=== PATIENT | male | born 1955 | race Caucasian/White ===

== ENCOUNTER 2018-08-14 09:18 | Emergency (ER) | payer MEDICARE, MEDICAID ==
--- NOTE | 2018-08-14 10:09 | CT ---
HEAD CT NONCONTRAST: Date: 08/14/18 INDICATION: Seizure. FINDINGS: There is a large region of encephalomalacia throughout the majority of the right cerebral hemisphere with a prominent degree of ex vacuo dilatation of the right lateral ventricle. There is a smaller reg ion of encephalomalacia of the left frontal lobe. No intracranial hemorrhage or acute mass effect. Th ere are radiopaque densities of the extra-axial space and overlying the calvarium with evidence of pr ior surgical resection of portions of the right calvarium. There is a left frontal approach bur hole. IMPRESSION: Extensive encephalomalacia, notably on the right, with overlying calvarial defects and jocy hole form ation related to prior surgery. POS: TPC
[2018-08-14 10:28] LABS: #Eosinphils 0.1 thou/uL (0.0-0.7); #Lymphocytes 1.5 thou/uL (1.20-3.40); #Monocytes 0.6 thou/uL (0.11-0.59); #Neutrophils 9.4 thou/uL (1.40-6.50); %Basophils 0.2 % (0.0-1.0); %Eosinophils 0.7 % (0.0-10.0); %Monocytes 5.5 % (0.0-10.0); %Neutrophils 80.6 % (42.0-75.0); Hemoglobin 17.5 g/dL (14.0-18.0); Mean Corpuscular HGB CONC 31.9 g/dL (32.0-36.0); Mean Corpuscular Hemoglobin 29.8 pg (27.0-31.0); Mean Corpuscular Volume 93.4 fL (78.0-98.0); Mean Platelet Volume 6.9 fL (7.4-10.4); Platelet Count 219 thou/uL (130-400); RBC Distribution Width 13.2 % (11.5-14.5); Red Blood Cell (RBC) Count 5.87 mill/uL (4.70-6.10); White Blood Cell (WBC) Count 11.6 thou/uL (4.8-10.8)
[2018-08-14] MEDS ORDERED: Acetaminophen 500 MG TAB ONE (10:30)
[2018-08-14 10:48] LABS: Anion Gap 15 mmol/L (10-20); BUN (Urea Nitrogen) 18 mg/dL (8.4-25.7); Calc. Creatinine Clearance 0 mL/min (70-130); Calcium 9.7 mg/dL (7.8-10.44); Carbon Dioxide 25 mmol/L (23-31); Chloride 100 mmol/L (98-107); Dilantin 20.6 ug/mL (10.0-20.0); Estimated GFR-MDRD Greater than 90; Glucose 95 mg/dL (80-115); Potassium 4.8 mmol/L (3.5-5.1); Sodium 135 mmol/L (136-145)
== END 2018-08-14 12:05 | disposition home or self-care (01) ==
LOC: ERS 09:18
DX: R56.9 Unspecified convulsions (principal); J44.9 Chronic obstructive pulmonary disease, unspecified; E87.6 Hypokalemia; Z79.899 Other long term (current) drug therapy
CPT/HCPCS: 36415; 36416; 70450; 80048; 80185; 85025

== ENCOUNTER 2020-04-18 21:29 | Inpatient (IN) | payer MEDICARE, MEDICAID ==
[2020-04-18] MEDS ORDERED: Cefepime 2 GM VIAL ONE (21:44)
[2020-04-18] MEDS ORDERED: Magnesium 2 GM/50 ML BAG (IN WATER) ONE (21:44)
[2020-04-18] MEDS ORDERED: Dexamethasone 10 MG/ML VIAL ONE (21:44)
[2020-04-18] MEDS ORDERED: Vancomycin 1 GM/200 ML BAG ONE (21:44)
[2020-04-18] MEDS ORDERED: Albuterol 200 PUFF (6.7GM INHALER) ONE (21:46)
[2020-04-18 22:01] LABS: pH, Arterial 7.19 (7.35-7.45)
[2020-04-18 22:02] LABS: Actual Bicarbonate (HCO3a) 28.7 mEq/L (22-28); Analyzer IN Cardio ER; Base Excess (BEa) -1.9 mEq/L (-2.0 to +3.0); CO2 Tension 76.4 mmHg (35.0-45.0); Calcium, Ionized (arterial) 1.18 mmol/L (1.12-1.30); Carboxyhemoglobin (COHb) 1.3 gm% (0.0-3.0); Hemoglobin (Hb) 16.3 g/dL (14.0-18.0); O2 Tension (PaO2), arterial 60.1 mmHg (> 80.0); Potassium - ABG Lab 4.69 mmol/L (3.70-5.30); Puncture Site RBR
--- NOTE | 2020-04-18 22:19 | RAD ---
RADIOGRAPH CHEST 1 VIEW: DATE: 04/18/2020 TIME: 9:45 PM HISTORY: 64-year-old male with dyspnea and respiratory distress COMPARISON: 06/22/2019 FINDINGS: There is a new endotracheal tube with distal tip at mid thoracic trachea. No cardiomegaly. Apparently chronic interstitial densities in the bilateral lower lung zones appear similar to that of the prior study. Scarring at the right lateral midlung field. Supine positioning makes this relatively in sensitive for the detection of pneumothorax. No interval change in appearance of the lungs. IMPRESSION: 1) chronic pulmonary changes. 2) status post intubation.
[2020-04-18 22:41] LABS: #Eosinphils 0.1 thou/uL (0.0-0.7); #Monocytes 0.9 thou/uL (0.11-0.59); #Neutrophils 13.3 thou/uL (1.40-6.50); %Basophils 0.1 % (0.0-1.0); %Eosinophils 0.5 % (0.0-10.0); %Lymphocytes 6.5 % (21.0-51.0); %Monocytes 5.8 % (0.0-10.0); Hemoglobin 15.5 g/dL (14.0-18.0); Mean Corpuscular HGB CONC 31.4 g/dL (32.0-36.0); Mean Corpuscular Volume 92.4 fL (78.0-98.0); Mean Platelet Volume 7.6 fL (7.4-10.4); Platelet Count 199 thou/uL (130-400); RBC Distribution Width 13.9 % (11.5-14.5); Red Blood Cell (RBC) Count 5.36 mill/uL (4.70-6.10); White Blood Cell (WBC) Count 15.3 thou/uL (4.8-10.8)
[2020-04-18 23:00] LABS: ALT (SGPT) 32 U/L (8-55); AST (SGOT) 24 U/L (5-34); Albumin 3.7 g/dL (3.4-4.8); Alkaline Phosphatase 73 U/L (40-110); Anion Gap 12 mmol/L (10-20); BUN (Urea Nitrogen) 20 mg/dL (8.4-25.7); CK (CPK) 95 U/L (30-200); Calc. Creatinine Clearance 0 mL/min (70-130); Calcium 7.9 mg/dL (7.8-10.44); Carbon Dioxide 27 mmol/L (23-31); Chloride 105 mmol/L (98-107); Estimated GFR-MDRD Greater than 90; Globulin 2.7 g/dL (2.4-3.5); Glucose 163 mg/dL (80-115); Lipase 6 U/L (8-78); Protein, Total 6.4 g/dL (5.8-8.1); Sodium 139 mmol/L (136-145)
--- NOTE | 2020-04-18 23:14 | RAD ---
RADIOGRAPH CHEST 1 VIEW: DATE: 04/18/2020 TIME: 10:49 PM HISTORY: 64-year-old male status post central line placement COMPARISON: 04/18/2020 9:45 PM FINDINGS: This is an upright image. There is no pneumothorax. There is a new vertically descending catheter fro m the right neck, with distal tip overlying the right medial upper lung zone, apparently slightly lateral to the right mediastinal border. There has been no other interval change. Endotracheal tube r emains. IMPRESSION: Interval placement of a central vascular catheter descending from the right neck, as described above, without pneumothorax.
[2020-04-18 23:18] LABS: Bacteria/HPF None Seen HPF (None Seen); Bilirubin Negative (Negative); Blood, Urine Negative (Negative); Clarity Clear (Clear); Glucose, Urine (Dipstick) Normal (Negative); Ketone, Urine Negative (Negative); Leukocyte Negative Leu/uL (Negative); Nitrite Negative (Negative); Protein, Urine (Dipstick) 70 mg/dL (Neg-Trace); Squamous Epithelial None Seen HPF (0-3); Urobilinogen Normal mg/dL (Less than 2)
[2020-04-18 23:20] LABS: Specific Gravity, Urine 1.052 (1.002-1.036); Sperm/HPF 2+ HPF (None Seen)
[2020-04-18] MEDS ORDERED: Fentanyl 100 MCG/2 ML VIAL ONE (23:28)
[2020-04-18 23:50] LABS: SARS-CoV-2 NAA Rapid Test Not Detected (NotDetected)
[2020-04-19] MEDS ORDERED: Propofol 1,000 MG/100 ML VIAL IV ONE (01:16)
[2020-04-19] MEDS ORDERED: Ondansetron PF 4 MG/2 ML Vial IVP PRN (01:46)
[2020-04-19] MEDS ORDERED: Electrolyte Replacement Protoc 1 EACH EACH FS PRN (01:46)
[2020-04-19] MEDS ORDERED: Labetalol HCl 100 MG/20 ML VIAL SLOW IVP PRN (01:46)
[2020-04-19] MEDS ORDERED: Ondansetron ODT 4 MG TAB PO PRN (01:46)
[2020-04-19] MEDS ORDERED: Ventilator Sedation Protocol 1 EACH FS SCH (01:46)
[2020-04-19] MEDS ORDERED: Acetaminophen 650 MG Suppository PR PRN (01:46)
[2020-04-19 01:52] VITALS: BMI 28.8
[2020-04-19] MEDS ORDERED: Morphine 2 MG/ML VIAL SLOW IVP PRN (02:00)
[2020-04-19] MEDS ORDERED: Fentanyl BOLUS 250 ML IVPB PRN (02:00)
[2020-04-19] MEDS ORDERED: DISCONTINUE PREVIOUS NARCOTIC PAIN MEDICATIONS AND BENZODIAZEPINES FS SCH (02:00)
[2020-04-19] MEDS ORDERED: Propofol BOLUS 1,000 MG/100 ML VIAL IV PRN (02:00)
[2020-04-19] MEDS ORDERED: Lorazepam 2 MG/ML VIAL SLOW IVP PRN (02:00)
[2020-04-19] MEDS: Sodium Chloride 0.9% 1,000 ML IV SCH ×3 (02:05→20:04)
--- NOTE | 2020-04-19 02:20 | PDOC.EVN ---
Event Note - Event Note Event Note: Chest CT showing spiculated mass in L perihilar region with concern for malignancy. Consult Pulmonology for any further recommendations and follow up surveillance.
--- NOTE | 2020-04-19 03:00 | HP ---
PRIMARY CARE PROVIDER: Dr. Daugherty. CHIEF COMPLAINT: Found down. HISTORY OF PRESENT ILLNESS: This is a 64-year-old male, who presented to [facility] after being found by [facility] staff unresponsive, in respiratory failure. The patient is a resident in the independent living center of [facility] and apparently had been to [facility] earlier in the day on 04/18/2020 for respiratory distress. The patient apparently did not want any further workup and refused care during this evaluation earlier 04/18/2020. The patient was subsequently transported back to [facility] apparently under his own volition and oriented x3. The patient apparently was found unresponsive in respiratory failure, at which point, he was brought to the emergency room. The patient was minimally responsive with respiratory distress and multiple contusions of his left frontal and facial region. The patient was intubated in the emergency room for stabilization of the airway and oxygenation status. The patient underwent CT imaging of the brain showing chronic changes without acute process. The patient with a significant prior history of traumatic brain injury and subdural hematoma with previous craniotomies. The patient received intravenous normal saline, fentanyl, and midazolam to assist with securing the endotracheal tube. The patient was transported to [facility] for further evaluation. In the emergency department, the patient received IV Levaquin and Decadron with metabolic screening showing a Keppra level of 5.8. Troponin and BNP were negative. An ABG performed in the emergency room showed a pH of 7.19 with a pCO2 of 76. PAST MEDICAL HISTORY: 1. Traumatic brain injury with subdural hematoma. 2. Chronic obstructive pulmonary disease. 3. Polyneuropathy. 4. Seizure disorder. PAST SURGICAL HISTORY: 1. Status post tonsillectomy. 2. Status post craniotomy. CURRENT MEDICATIONS: Will need to be confirmed with [facility]. ALLERGIES: NO KNOWN DRUG ALLERGIES. FAMILY HISTORY: Unobtainable due to patient's respiratory failure, on mechanical ventilation. SOCIAL HISTORY: Resides at [facility]. No alcohol, tobacco, or illicit drug use. REVIEW OF SYSTEMS: Unobtainable due to patient's respiratory failure requiring mechanical ventilation. PHYSICAL EXAMINATION: VITAL SIGNS: On admission, blood pressure 96/65, pulse 73, respiratory rate 22, temperature 99.5 degrees Fahrenheit, O2 saturation 100% on 40% FiO2 by SIMV. HEENT: Pupils are minimally reactive to light and accommodation. Mild conjunctival injection. Multiple areas of contusion and ecchymosis on the forehead and lateral face. Nares patent. OP with endotracheal tube in place. NECK: Supple. No adenopathy appreciated. No palpable mass. No JVD noted. CHEST: Diminished breath sounds bilaterally with occasional expiratory rhonchi. CARDIOVASCULAR: S1, S2 without noted murmur, rub, or gallop. ABDOMEN: Obese, soft, nondistended. Bowel sounds are positive in all 4 quadrants. No palpable mass. No rebound or guarding noted. EXTREMITIES: Warm and dry with fair turgor. No clubbing, cyanosis, or asymmetric edema appreciated. Pulses are palpable distally at the dorsalis pedis, posterior tibial, and popliteal arteries bilaterally. Capillary refill less than 2 seconds. NEUROLOGIC: Unresponsive on current sedation due to mechanical ventilation. GENITOURINARY: A Kline catheter in place with dark vito urine. PERTINENT LABORATORY AND X-RAY FINDINGS: Complete metabolic profile within normal limits. BNP 13.9. Troponin I negative x1. Prolactin level 11.53. CBC showed a white blood cell count of 15.3, hemoglobin 15.5, hematocrit 49.5, platelet count 199 with 87% neutrophils. ABGs dated 04/18/2020 at 2155 showed a pH of 7.19, pCO2 of 76, PO2 of 60, bicarb 28.7, O2 saturation 89% on FiO2 of 40%. Urinalysis shows specific gravity 1.052, positive protein, 4 to 6 wbc's per high-powered field. Keppra level 5.8 on 04/18/2020. SARS-CoV-2 PCR not detected on 04/18/2020. CT of the brain without contrast dated 04/18/2020 showed no acute intracranial process. Stable chronic changes noted with encephalomalacia over the superior aspect of the left frontal lobe. CT of the cervical spine dated 04/18/2020 showed no acute fracture or dislocation. CT of the chest, abdomen, and pelvis dated 04/18/2020 showed no acute process. A spiculated mass in the left suprahilar region suspicious for malignancy. Scattered emphysematous changes. Left inguinal hernia containing nonobstructive loop of sigmoid colon. Portable chest x-ray dated 04/18/2020 showed right internal jugular central venous catheter placement. No pneumothorax noted. EKG dated 04/18/2020 by my interpretation shows sinus mechanism with heart rates in the 90s. Normal R-wave progression noted in the precordial leads. Normal axis. No acute ST-T wave changes appreciated. ASSESSMENT/PLAN: 1. Acute hypoxic hypercapnic respiratory failure. The patient will be admitted to the Critical Care Unit. Intubated in the emergency room. We will continue mechanical ventilation with SIMV, FiO2 of 40%. Consult Pulmonology Service in the a.m. for ongoing management. Repeat portable chest x-ray in the a.m. Continue DuoNeb q.4 hours. Solu-Medrol 40 mg IV q.6 hours. 2. Metabolic encephalopathy. Suspect secondary to the hypercapnia and hypoxia. Continue supportive management as outlined in #1. 3. Closed head injury. Questionable etiology and may be related to seizure disorder. Continue supportive management. Repeat CT of the brain in the a.m. 4. Seizure disorder. Continue deep sedation with propofol. Ativan 2 mg IV push q.15 minutes p.r.n. seizure activity. Resume Keppra once home regimen and dose confirmed. Consult Neurology Service in the a.m. 5. Dehydration. Continue intravenous normal saline at 100 mL/h. Monitor urine output. 6. Prophylaxis. SCDs while in bed. Pepcid 20 mg IV b.i.d. PT evaluation after extubation. CODE STATUS: Full. Surrogate medical decision maker is Carlos Alberto Miramontes. Job ID: [id number]
[2020-04-19 04:46] LABS: #Lymphocytes 0.6 thou/uL (1.20-3.40); #Monocytes 0.3 thou/uL (0.11-0.59); #Neutrophils 12.6 thou/uL (1.40-6.50); %Eosinophils 0.2 % (0.0-10.0); %Lymphocytes 4.2 % (21.0-51.0); %Monocytes 2.3 % (0.0-10.0); %Neutrophils 93.3 % (42.0-75.0); Hemoglobin 15.4 g/dL (14.0-18.0); Mean Corpuscular HGB CONC 31.8 g/dL (32.0-36.0); Mean Corpuscular Hemoglobin 28.9 pg (27.0-31.0); Mean Corpuscular Volume 90.8 fL (78.0-98.0); Platelet Count 212 thou/uL (130-400); Red Blood Cell (RBC) Count 5.33 mill/uL (4.70-6.10); White Blood Cell (WBC) Count 13.5 thou/uL (4.8-10.8)
[2020-04-19 05:13] LABS: ALT (SGPT) 31 U/L (8-55); AST (SGOT) 17 U/L (5-34); Albumin 3.8 g/dL (3.4-4.8); Alkaline Phosphatase 70 U/L (40-110); Anion Gap 13 mmol/L (10-20); BUN (Urea Nitrogen) 22 mg/dL (8.4-25.7); Bilirubin, Total 0.9 mg/dL (0.2-1.2); Calc. Creatinine Clearance 121 mL/min (70-130); Calcium 8.2 mg/dL (7.8-10.44); Carbon Dioxide 27 mmol/L (23-31); Chloride 106 mmol/L (98-107); Estimated GFR-MDRD Greater than 90; Globulin 2.7 g/dL (2.4-3.5); Glucose 157 mg/dL (80-115); Magnesium 2.4 mg/dL (1.6-2.6); Potassium 4.6 mmol/L (3.5-5.1); Protein, Total 6.5 g/dL (5.8-8.1); Sodium 141 mmol/L (136-145)
[2020-04-19] MEDS: methylPREDNISolone Sod Succ 40 MG VIAL IVP SCH ×4 (05:24→23:47)
[2020-04-19 07:09] LABS: Actual Bicarbonate (HCO3a) 23.6 mEq/L (22-28); Base Excess (BEa) -2.2 mEq/L (-2.0 to +3.0); CO2 Tension 44.2 mmHg (35.0-45.0); Calcium, Ionized (arterial) 1.13 mmol/L (1.12-1.30); Hemoglobin (Hb) 15.4 g/dL (14.0-18.0); O2 Tension (PaO2), arterial 69.1 mmHg (> 80.0); Potassium - ABG Lab 4.62 mmol/L (3.70-5.30); Puncture Site LRA; pH, Arterial 7.35 (7.35-7.45)
--- NOTE | 2020-04-19 08:27 | CT ---
PRELIMINARY REPORT/[facility]/EMERGENCY AFTER HOURS PROCEDURE: Exam: Unenhanced CT brain. History: Seizure. Comparison: August 14, 2018. Findings: Patient is intubated. There is chronic opacification right mastoid air cells. Mucosal thi ckening paranasal sinuses is present. Small amount of fluid is present right frontal sinus. Right f rontal parietal craniotomy is present. Marked encephalomalacia right cerebral hemisphere is present with compensatory dilatation. Right lateral ventricle. Appearance is unchanged. Patient demonstrat es. Baseline of cerebral atrophy. Impression: No acute intracranial abnormality. Postsurgical changes right cerebral hemisphere and ex tensive volume loss. ELECTRONICALLY SIGNED BY: Sera Belle MD Apr 19, 2020 4:36:48 AM CDT FINAL REPORT EMERGENT AFTER HOURS CT OF THE BRAIN WITHOUT CONTRAST: FINDINGS/IMPRESSION: I agree with the findings and impression given in the preliminary report per [facility] physici an. There is extensive encephalomalacia in the right cerebral hemisphere without acute intracranial abnormality. POS: EAA
[2020-04-19] MEDS ORDERED: Morphine 4 MG/ML VIAL SLOW IVP PRN (08:45)
[2020-04-19] MEDS: Famotidine/PF 20 mg/2ml Vial SLOW IVP SCH ×2 (08:49→20:04)
--- NOTE | 2020-04-19 08:53 | PDOC.HOSPP ---
- Subjective Encounter Date: 04/19/20 Encounter Time: 08:50 Subjective: Mr. Santiago was seen today in follow-up of respiratory failure. He is currently on the vent. He is awake and alert. - Objective Vital Signs & Weight: Vital Signs (12 hours) Temp Pulse Resp BP Pulse Ox 04/19/20 08:00 99 F 22 H 100 04/19/20 06:23 75 106/69 04/19/20 06:00 22 H 04/19/20 04:00 99.6 F 22 H 04/19/20 03:05 73 04/19/20 02:14 100 04/19/20 01:58 22 H 04/19/20 01:00 99.5 F 04/19/20 00:57 79 Weight Weight 212 lb 1.355 oz Most Recent Monitor Data Heart Rate from ECG 86 NIBP 110/75 NIBP BP-Mean 86 Respiration from ECG 26 SpO2 99 I&O: 04/18/20 04/19/20 04/20/20 06:59 06:59 06:59 Intake Total 360 Output Total 255 15 Balance 105 -15 Result Diagrams: 04/19/20 04:30 04/19/20 04:30 Hospitalist ROS - Medication Medications: Active Medications Generic Name Dose Route Start Last Admin Trade Name Freq PRN Reason Stop Dose Admin Sodium Chloride 1,000 mls @ 100 mls/hr 04/19/20 02:00 04/19/20 02:05 Normal Saline 0.9% IV 1,000 mls .Q10H COLLEEN Administration Levofloxacin 500 mg/ Device 100 mls @ 100 mls/hr 04/19/20 04:00 04/19/20 04:40 IVPB 100 mls 0400 COLLEEN Administration Methylprednisolone Sodium Succinate 40 mg 04/19/20 06:00 04/19/20 05:24 Methylprednisolone Sod Succ 40 Mg Vial IVP 40 mg Q6HR COLLEEN Administration - Exam General Appearance: awake alert Eye: PERRL, anicteric sclera Heart: RRR, no murmur, no gallops, no rubs Respiratory: CTAB, no wheezes, no rales, no ronchi, normal chest expansion Gastrointestinal: soft, non-tender, non-distended, normal bowel sounds, no palpable masses Extremities: no cyanosis, no edema Hosp A/P (1) Acute respiratory failure with hypoxia and hypercapnia Code(s): J96.01 - ACUTE RESPIRATORY FAILURE WITH HYPOXIA; J96.02 - ACUTE RESPIRATORY FAILURE WITH HYPERCAPNIA Status: Acute (2) Altered mental status Code(s): R41.82 - ALTERED MENTAL STATUS, UNSPECIFIED Status: Acute (3) Seizure disorder Code(s): G40.909 - EPILEPSY, UNSP, NOT INTRACTABLE, WITHOUT STATUS EPILEPTICUS Status: Acute (4) COPD (chronic obstructive pulmonary disease) Status: Chronic (5) Traumatic brain injury Code(s): S06.9X9A - UNSP INTRACRANIAL INJURY W LOC OF UNSP DURATION, INIT Status: Chronic - Plan * Acute respiratory failure- it is possible he had a seizure which precipitated this event- continue vent support * Seizure disorder- will transition to Keppra IV while intubated * COPD- continue IV steroids and Duonebs * DVT and GI prophylaxis * Await further recommendations from [facility]
--- NOTE | 2020-04-19 09:13 | RAD ---
PORTABLE CHEST: HISTORY: Respiratory failure. Ventilator followup with CCU followup. COMPARISON: 04/18/2020. FINDINGS: ET tube and NG tube are in place. A central line via the right jugular is unchanged. Hazy infiltrates in both mid and lower lungs appear unchanged from yesterday. IMPRESSION: No acute interval change. POS: OFF
[2020-04-19] MEDS: Enoxaparin Sodium 40 MG/0.4 ML SYRINGE SC SCH (11:03)
--- NOTE | 2020-04-19 12:20 | CON ---
NEUROLOGY CONSULTATION DATE OF CONSULTATION: 04/19/2020 REASON FOR CONSULTATION: Altered mental status. HISTORY OF PRESENT ILLNESS: Mr. Narcisa Santiago is a 64-year-old male with history significant for seizure disorder, presented to the emergency room at [facility] after being found down by [facility] nursing care staff. He was found unresponsive with respiratory distress on 04/18/2020. The patient was seen in the emergency room at [facility] earlier on 04/18/2020 with respiratory distress, but he refused further workup and was transported back to the [facility]. At that time, the patient was alert and oriented x3. However, this time he was minimally responsive and has multiple contusions in his left frontal and facial region. There was a concern about seizure, and since he was in respiratory distress, he was intubated and sedated. The patient had CT of the brain, which did not reveal any acute intracranial pathology or bleed. However, the CT did show prior encephalomalacia related to traumatic brain injury with previous history of craniotomy due to subdural hematoma. He was given fentanyl, normal saline and midazolam, intubated and transported to [facility] for further evaluation. Neurology was consulted for further management. REVIEW OF SYSTEMS: Unobtainable due to patient mental status. 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 PAST SURGICAL HISTORY: Status post craniotomy, status post tonsillectomy. MEDICATION: 1. Keppra 750 mg p.o. daily. 2. Gabapentin. ALLERGIES: NO KNOWN DRUG ALLERGIES. FAMILY HISTORY: Unobtainable due to the patient being intubated. SOCIAL HISTORY: The patient resides in [facility] independent living. He denies tobacco, alcohol or illegal drug. REVIEW OF SYSTEMS: Unobtainable, due to intubation. - Objective Vital Signs & Weight: Vital Signs (12 hours) Temp Pulse Resp BP Pulse Ox 04/19/20 08:00 99 F 22 H 100 04/19/20 06:23 75 106/69 04/19/20 06:00 22 H 04/19/20 04:00 99.6 F 22 H 04/19/20 03:05 73 04/19/20 02:14 100 04/19/20 01:58 22 H 04/19/20 01:00 99.5 F 09/28/20 00:57 79 Weight Weight 212 lb 1.355 oz Most Recent Monitor Data Heart Rate from ECG 86 NIBP 110/75 NIBP BP-Mean 86 Respiration from ECG 26 SpO2 99 I&O: 04/18/20 04/19/20 04/20/20 06:59 06:59 06:59 Intake Total 360 Output Total 255 15 Balance 105 -15 PHYSICAL EXAMINATION: General Appearance: awake alert Eye: PERRL, anicteric sclera Heart: RRR, no murmur, no gallops, no rubs Respiratory: CTAB, no wheezes, no rales, no ronchi, normal chest expansion Gastrointestinal: soft, non-tender, non-distended, normal bowel sounds, no palpable masses Extremities: no cyanosis, no edema EXTREMITIES: No clubbing, cyanosis, or edema. NEUROLOGIC: The patient is intubated and mildly sedated. He opens eyes to verbal stimuli. Follows one-step commands. Cranial nerves: Pupils 4 mm, round and reactive to light. Face symmetric. Tongue midline. Moves neck in both direction. Hearing seems to be intact. Motor: Muscle tone and bulk are normal. Minimal movement of all 4 extremities spontaneously. Sensory, withdraws all 4 extremities to nailbed pressure. Cerebellar, unable to perform secondary to restraints. Gait, deferred due to patient's safety reason. DATA REVIEWED: CT of the brain did not reveal any acute intracranial pathology, but stable changes noted with encephalomalacia in the superior aspect of the left frontal lobe. CT of the cervical spine on 04/18/2020 did not show any fracture or dislocation. The EKG showed normal sinus rhythm. Active Medications Generic Name Dose Route Start Last Admin Trade Name Freq PRN Reason Stop Dose Admin Sodium Chloride 1,000 mls @ 100 mls/hr 04/19/20 02:00 04/19/20 02:05 Normal Saline 0.9% IV 1,000 mls .Q10H COLLEEN Administration Levofloxacin 500 mg/ Device 100 mls @ 100 mls/hr 04/19/20 04:00 04/19/20 04:40 IVPB 100 mls 0400 COLLEEN Administration Methylprednisolone Sodium Succinate 40 mg 04/19/20 06:00 04/19/20 05:24 Methylprednisolone Sod Succ 40 Mg Vial IVP 40 mg Q6HR COLLEEN Administration ASSESSMENT AND PLAN: (1) Acute respiratory failure with hypoxia and hypercapnia Code(s): J96.01 - ACUTE RESPIRATORY FAILURE WITH HYPOXIA; J96.02 - ACUTE RESPIRATORY FAILURE WITH HYPERCAPNIA Status: Acute (2) Altered mental status Code(s): R41.82 - ALTERED MENTAL STATUS, UNSPECIFIED Status: Acute (3) Seizure disorder Code(s): G40.909 - EPILEPSY, UNSP, NOT INTRACTABLE, WITHOUT STATUS EPILEPTICUS Status: Acute (4) COPD (chronic obstructive pulmonary disease) Status: Chronic (5) Traumatic brain injury Code(s): S06.9X9A - UNSP INTRACRANIAL INJURY W LOC OF UNSP DURATION, INIT Status: Chronic Mr. Narcisa Santiago is a 64-year-old [facility] resident, who came with altered mental status. There is a concern about seizure but no seizure activity was noted. He was found to be in respiratory distress, so he is currently intubated, and on fentanyl. 1. EEG reviewed and did not reveal seizure activity. 2. Observe seizure precautions. 3. Increase home dose of Keppra to 1000 mg twice daily. The patient is unable to take p.o. at this time due to intubations. So switch Keppra to 1000 mg IV q.12. 4. Ativan 2 mg IV for seizure greater than greater than 2 minutes. 5. Continue home medications. Continue medical management per primary team and Pulmonology. We will continue to follow. Plan discussed with the patient and the nursing staff. Thank you for the consult. Job ID: [id number] [facility] HOSPITALDenia
[2020-04-19] MEDS: fentaNYL Citrate/PF 2,000 MCG in Sodium Chloride 0.9% 60 ML IV SCH (15:06)
--- NOTE | 2020-04-19 15:19 | CON ---
DATE OF CONSULTATION: 04/19/2020 Thirty five minutes critical care time. REASON FOR CONSULTATION: Acute respiratory failure requiring mechanical ventilation. HISTORY OF PRESENT ILLNESS: This is a 64-year-old male, who presented to the [place] [facility] yesterday with respiratory distress. He initially refused any further workup and was sent back to the [facility] center, where he was found down and brought back to the emergency room and intubated and placed on mechanical ventilation. There was some question whether or not he had fallen on his head. PAST MEDICAL HISTORY: 1. He has had a previous stroke. 2. Traumatic brain injury with subdural hematoma. 3. Left-sided hemiparesis. 4. COPD. 5. Polyneuropathy. 6. Seizure disorder. PAST SURGICAL HISTORY: 1. Tonsillectomy. 2. Craniotomy. MEDICATIONS: Prior to admission; 1. Levetiracetam 750 mg b.i.d. 2. Potassium chloride 10 mEq daily. 3. Gabapentin 300 mg b.i.d. 4. Furosemide 20 mg daily. SOCIAL HISTORY: Not sure about alcohol, tobacco, or drug use in the past. ALLERGIES: NONE. FAMILY MEDICAL HISTORY: Unremarkable. REVIEW OF SYSTEMS: Cannot be obtained at this time. PHYSICAL EXAMINATION: VITAL SIGNS: Temperature 99, pulse 78, blood pressure 101/67, O2 saturation 100%. GENERAL: The patient is wide awake, follows commands. HEENT: Has left eye conjunctival hemorrhage. Oropharynx, intubated. NECK: No adenopathy or JVD. LUNGS: Coarse rhonchi with expiratory wheezing bilaterally. CARDIAC: S1 and S2, regular. ABDOMEN: Soft and nontender. EXTREMITIES: No clubbing, cyanosis, or edema. NEUROLOGIC: He could move his right side without any problems. He has paralysis on his left side. LABORATORY DATA: White blood cell count 13.5, hematocrit 48.4, and platelet count 212. PH 7.35, pCO2 of 44, PO2 of 69. Sodium 141, potassium 4.6, chloride 106, CO2 of 27, BUN 22, creatinine 0.8, glucose 157. COVID rapid test was negative. Chest x-ray shows bilateral infiltrative changes. ASSESSMENT: 1. Chronic obstructive pulmonary disease with exacerbation. 2. Acute respiratory failure requiring mechanical ventilation. 3. Pneumonia. 4. Seizure disorder. PLAN: 1. Schedule his breathing treatments every 4 hours. 2. Continue antibiotics. 3. Continue steroids. 4. Hopefully, wean him to extubate soon. 5. Pepcid for GI prophylaxis. 6. Enoxaparin for DVT prophylaxis. Job ID: [id number]
[2020-04-19] MEDS: Propofol 1,000 MG/100 ML VIAL IV PRN (18:46)
[2020-04-19] MEDS: levETIRAcetam In NaCl (Iso-Os) 1,000 MG in Premix Bag 1 BAG IVPB SCH (20:04)
[2020-04-19] MEDS ORDERED: LEVETIRACETAM IVPB SCH (21:00)
[2020-04-19] MEDS ORDERED: NACL IVPB SCH (21:00)
[2020-04-19] MEDS ORDERED: SODIUM CHLORIDE 0.9% IVPB SCH (21:00)
[2020-04-20] MEDS: Propofol 1,000 MG/100 ML VIAL IV PRN ×3 (02:13→22:04)
[2020-04-20 05:11] LABS: #Lymphocytes 0.8 thou/uL (1.20-3.40); #Monocytes 0.8 thou/uL (0.11-0.59); #Neutrophils 16.2 thou/uL (1.40-6.50); %Basophils 0.1 % (0.0-1.0); %Eosinophils 0.1 % (0.0-10.0); %Lymphocytes 4.4 % (21.0-51.0); %Monocytes 4.2 % (0.0-10.0); %Neutrophils 91.1 % (42.0-75.0); Hemoglobin 13.9 g/dL (14.0-18.0); Mean Corpuscular HGB CONC 30.5 g/dL (32.0-36.0); Mean Corpuscular Hemoglobin 28.4 pg (27.0-31.0); Mean Corpuscular Volume 93.2 fL (78.0-98.0); Mean Platelet Volume 8.4 fL (7.4-10.4); Platelet Count 193 thou/uL (130-400); RBC Distribution Width 14.1 % (11.5-14.5); Red Blood Cell (RBC) Count 4.88 mill/uL (4.70-6.10); White Blood Cell (WBC) Count 17.8 thou/uL (4.8-10.8)
[2020-04-20] MEDS: methylPREDNISolone Sod Succ 40 MG VIAL IVP SCH ×3 (05:13→17:04)
[2020-04-20 05:33] LABS: ALT (SGPT) 25 U/L (8-55); AST (SGOT) 15 U/L (5-34); Albumin 3.8 g/dL (3.4-4.8); Alkaline Phosphatase 57 U/L (40-110); Anion Gap 12 mmol/L (10-20); BUN (Urea Nitrogen) 27 mg/dL (8.4-25.7); Bilirubin, Total 0.6 mg/dL (0.2-1.2); Calc. Creatinine Clearance 119 mL/min (70-130); Calcium 8.1 mg/dL (7.8-10.44); Carbon Dioxide 26 mmol/L (23-31); Chloride 107 mmol/L (98-107); Estimated GFR-MDRD Greater than 90; Globulin 2.7 g/dL (2.4-3.5); Glucose 135 mg/dL (80-115); Potassium 4.9 mmol/L (3.5-5.1); Protein, Total 6.5 g/dL (5.8-8.1); Sodium 140 mmol/L (136-145)
[2020-04-20] MEDS: Sodium Chloride 0.9% 1,000 ML IV SCH ×2 (07:21→17:20)
[2020-04-20 08:04] LABS: Actual Bicarbonate (HCO3a) 25.8 mEq/L (22-28); Base Excess (BEa) -2.6 mEq/L (-2.0 to +3.0); Calcium, Ionized (arterial) 1.22 mmol/L (1.12-1.30); Carboxyhemoglobin (COHb) 0.8 gm% (0.0-3.0); Hemoglobin (Hb) 16.7 g/dL (14.0-18.0); O2 Tension (PaO2), arterial 89.2 mmHg (> 80.0); Potassium - ABG Lab 4.83 mmol/L (3.70-5.30); pH, Arterial 7.26 (7.35-7.45)
[2020-04-20 08:19] LABS: Puncture Site LRA
--- NOTE | 2020-04-20 08:33 | PDOC.HOSPP ---
- Subjective Encounter Date: 04/20/20 Encounter Time: 08:31 Subjective: Ms. Santiago was seen today in follow-up of respiratory failure. He is intubated, but awake and alert. - Objective Vital Signs & Weight: Vital Signs (12 hours) Temp Pulse Resp BP Pulse Ox 04/20/20 07:05 102 H 119/64 04/20/20 06:24 98 12 99 04/20/20 06:00 13 04/20/20 04:00 98.5 F 14 04/20/20 02:00 13 04/20/20 01:43 89 04/20/20 00:00 99.2 F 14 04/19/20 23:13 86 13 97 04/19/20 23:11 85 04/19/20 22:00 14 Weight Admit Weight 212 lb Weight 212 lb 1.355 oz Most Recent Monitor Data Heart Rate from ECG 99 NIBP 119/64 NIBP BP-Mean 82 Respiration from ECG 13 SpO2 97 I&O: 04/19/20 04/20/20 04/21/20 06:59 06:59 06:59 Intake Total 360 2495.9 Output Total 255 995 90 Balance 105 1500.9 -90 Result Diagrams: 04/20/20 04:00 04/20/20 04:00 Hospitalist ROS - Medication Medications: Active Medications Generic Name Dose Route Start Last Admin Trade Name Freq PRN Reason Stop Dose Admin Albuterol/Ipratropium 3 ml 04/19/20 09:45 04/20/20 06:24 Ipratropium/Albuterol Sulfate 3 Ml Neb NEB 3 ml Q4H COLLEEN Administration Enoxaparin Sodium 40 mg 04/19/20 09:00 04/19/20 11:03 Enoxaparin Sodium 40 Mg/0.4 Ml Syringe SC 40 mg 0900 COLLEEN Administration Famotidine 20 mg 04/19/20 09:00 04/19/20 20:04 Famotidine/Pf 20 Mg/2ml Vial SLOW IVP 20 mg Q12HR COLLEEN Administration Fentanyl Citrate 2,000 mcg/ 100 mls @ 0 mls/hr 04/18/20 23:45 04/19/20 15:06 Sodium Chloride IV 05/18/20 23:45 100 mls INF COLLEEN Administration Protocol Per Protocol Sodium Chloride 1,000 mls @ 100 mls/hr 04/19/20 02:00 04/20/20 07:21 Normal Saline 0.9% IV 1,000 mls .Q10H COLLEEN Administration Levofloxacin 500 mg/ Device 100 mls @ 100 mls/hr 04/19/20 04:00 04/20/20 03:36 IVPB 100 mls 0400 COLLEEN Administration Levetiracetam 1,000 mg/ Device 100 mls @ 200 mls/hr 04/19/20 21:00 04/19/20 20:04 IVPB 100 mls BID COLLEEN Administration Methylprednisolone Sodium Succinate 40 mg 04/19/20 06:00 04/20/20 05:13 Methylprednisolone Sod Succ 40 Mg Vial IVP 40 mg Q6HR COLLEEN Administration Propofol 1,000 mg 04/19/20 02:00 04/20/20 02:13 Propofol 1,000 Mg/100 Ml Vial IV 05/19/20 02:00 1,000 mg INF PRN Administration TO ACHIEVE GOAL RASS Protocol - Exam General - other findings: + generalized erythema on his face Eye: PERRL, anicteric sclera Heart: RRR, no murmur, no gallops, no rubs, normal peripheral pulses Respiratory: no rales, wheezes (+ bilateral wheezing with long expiratory phase) Gastrointestinal: soft, non-tender, non-distended, normal bowel sounds, no palpable masses, no hepatomegaly Extremities: 1+ LE edema Hosp A/P (1) Acute respiratory failure with hypoxia and hypercapnia Code(s): J96.01 - ACUTE RESPIRATORY FAILURE WITH HYPOXIA; J96.02 - ACUTE RESPIRATORY FAILURE WITH HYPERCAPNIA Status: Acute (2) Altered mental status Code(s): R41.82 - ALTERED MENTAL STATUS, UNSPECIFIED Status: Acute (3) Seizure disorder Code(s): G40.909 - EPILEPSY, UNSP, NOT INTRACTABLE, WITHOUT STATUS EPILEPTICUS Status: Acute (4) COPD (chronic obstructive pulmonary disease) Status: Chronic (5) Traumatic brain injury Code(s): S06.9X9A - UNSP INTRACRANIAL INJURY W LOC OF UNSP DURATION, INIT Status: Chronic - Plan * Acute respiratory failure- due to COPD exacerbation * Seizure disorder- EEG did not reveal any seizure activity. Keppra dose has been increased to 1000mg BID * COPD- continue IV steroids and Duonebs, and Levoquin * He has been placed on a CPAP trial * DVT and GI prophylaxis * May need to begin tube feeds for nutritional support.
--- NOTE | 2020-04-20 08:37 | PRG ---
DATE OF SERVICE: 04/20/2020 35 minutes of critical care time. SUBJECTIVE: The patient remains intubated on mechanical ventilation. There have been no acute changes overnight. OBJECTIVE: VITAL SIGNS: Temperature 98.5, pulse 99, blood pressure 119/64, O2 saturation 97%. 24-hour intake 2495, output 995. HEENT: Remarkable rhinophyma. NECK: No adenopathy or JVD. LUNGS: Diffuse wheezing. CARDIAC: S1 and S2. Regular. ABDOMEN: Soft and nontender. EXTREMITIES: No edema. LABORATORY DATA: White blood cell count 17.8, hematocrit 45.5, and platelet count 193. PH of 7.26, pCO2 of 59, pO2 of 89 on CPAP 5, pressure support 5, FiO2 of 40%. Sodium 140, potassium 4.9, chloride 107, CO2 of 26, BUN 27, creatinine 0.8, and glucose 135. ASSESSMENT: 1. Chronic obstructive pulmonary disease with exacerbation. 2. Acute respiratory failure, requiring mechanical ventilation. 3. Pneumonia. 4. Seizure disorder. PLAN: The patient became acidotic on a CPAP trial today. I think we can still do pressure support ventilation, but I will increase the amount of pressure support. We will continue with steroids, nebulization treatments, hopefully extubate tomorrow. Job ID: [id number]
[2020-04-20] MEDS: Lorazepam 2 MG/ML VIAL SLOW IVP PRN (08:53)
[2020-04-20] MEDS: Famotidine/PF 20 mg/2ml Vial SLOW IVP SCH ×2 (08:54→20:18)
[2020-04-20] MEDS: Enoxaparin Sodium 40 MG/0.4 ML SYRINGE SC SCH (08:55)
[2020-04-20] MEDS: levETIRAcetam In NaCl (Iso-Os) 1,000 MG in Premix Bag 1 BAG IVPB SCH ×2 (08:55→20:19)
--- NOTE | 2020-04-20 08:57 | EEG ---
DATE OF SERVICE: 04/19/2020 ATTENDING PHYSICIAN: Leonie Horn MD This EEG was performed using 24-channel [employer] video digital EEG machine with 24-disk electrodes. This was an extended 2 hours 5 minutes of inpatient video EEG recording. Digital analysis of the EEG was done for spike and seizure detection, which revealed no abnormalities. BACKGROUND: There is a nonsustained posterior background rhythm of 7 to 8 Hz. Minimal reactivity is seen with eye opening and closure. HYPERVENTILATION: Not performed. PHOTIC STIMULATION: Not performed. SLEEP: Drowsiness and sleep are not observed. EEG DIAGNOSES: 1. Occasional irregular theta activity seen during the recording. 2. Slow nonsustained posterior background rhythm. CLINICAL INTERPRETATION: This EEG is consistent with mild to moderate generalized nonspecific cerebral dysfunction. Job ID: [id number]
[2020-04-20] MEDS: fentaNYL Citrate/PF 2,000 MCG in Sodium Chloride 0.9% 60 ML IV SCH (10:04)
--- NOTE | 2020-04-20 13:41 | PDOC.NEUPN ---
- Subjective Encounter Date: 04/20/20 Subjective: Patient continues to be sedated and intubated due to COPD exacerbation. No history of seizures. EEG negative for seizure activity. - Objective Vital Signs & Weight: Vital Signs (12 hours) Temp Pulse Pulse Pulse Resp BP BP 04/20/20 12:00 99.2 F 11 L 04/20/20 10:40 85 92 91/55 L 04/20/20 10:17 85 90/56 L 04/20/20 10:08 85 13 04/20/20 10:00 14 04/20/20 08:00 99.1 F 10 L 04/20/20 07:05 102 H 119/64 04/20/20 06:24 98 12 04/20/20 06:00 13 04/20/20 04:00 98.5 F 14 04/20/20 02:00 13 04/20/20 01:43 89 BP Pulse Ox Pulse Ox Pulse Ox 04/20/20 12:00 04/20/20 10:40 117/61 100 100 04/20/20 10:17 04/20/20 10:08 99 04/20/20 10:00 04/20/20 08:00 99 04/20/20 07:05 04/20/20 06:24 99 04/20/20 06:00 04/20/20 04:00 04/20/20 02:00 04/20/20 01:43 Weight Admit Weight 212 lb Weight 212 lb 1.355 oz Most Recent Monitor Data Heart Rate from ECG 94 NIBP 120/80 NIBP BP-Mean 93 Respiration from ECG 19 SpO2 97 I&O: 04/19/20 04/20/20 04/21/20 06:59 06:59 06:59 Intake Total 360 2495.9 Output Total 255 995 345 Balance 105 1500.9 -345 Result Diagrams: 04/20/20 04:00 04/20/20 04:00 Radiology Reviewed by me: Yes EKG Reviewed by me: Yes ROS - Review of Systems ROS unobtainable: due to endotracheal tube - Medication Medications: Active Medications Generic Name Dose Route Start Last Admin Trade Name Freq PRN Reason Stop Dose Admin Albuterol/Ipratropium 3 ml 04/19/20 09:45 04/20/20 10:08 Ipratropium/Albuterol Sulfate 3 Ml Neb NEB 3 ml Q4H COLLEEN Administration Enoxaparin Sodium 40 mg 04/19/20 09:00 04/20/20 08:55 Enoxaparin Sodium 40 Mg/0.4 Ml Syringe SC 40 mg 0900 COLLEEN Administration Famotidine 20 mg 04/19/20 09:00 04/20/20 08:54 Famotidine/Pf 20 Mg/2ml Vial SLOW IVP 20 mg Q12HR COLLEEN Administration Fentanyl Citrate 2,000 mcg/ 100 mls @ 0 mls/hr 04/18/20 23:45 04/20/20 10:04 Sodium Chloride IV 05/18/20 23:45 100 mls INF COLLEEN Administration Protocol Per Protocol Sodium Chloride 1,000 mls @ 100 mls/hr 04/19/20 02:00 04/20/20 07:21 Normal Saline 0.9% IV 1,000 mls .Q10H COLLEEN Administration Levofloxacin 500 mg/ Device 100 mls @ 100 mls/hr 04/19/20 04:00 04/20/20 03:36 IVPB 100 mls 0400 COLLEEN Administration Levetiracetam 1,000 mg/ Device 100 mls @ 200 mls/hr 04/19/20 21:00 04/20/20 08:55 IVPB 100 mls BID COLLEEN Administration Lorazepam 2 mg 04/19/20 01:46 04/20/20 08:53 Lorazepam 2 Mg/Ml Vial SLOW IVP 2 mg Q15M PRN Administration Seizures Methylprednisolone Sodium Succinate 40 mg 04/19/20 06:00 04/20/20 11:41 Methylprednisolone Sod Succ 40 Mg Vial IVP 40 mg Q6HR COLLEEN Administration Propofol 1,000 mg 04/19/20 02:00 04/20/20 02:13 Propofol 1,000 Mg/100 Ml Vial IV 05/19/20 02:00 1,000 mg INF PRN Administration TO ACHIEVE GOAL RASS Protocol - Exam General Appearance: NAD Eye: PERRL ENT: normocephalic atraumatic Neck: supple Respiratory: CTAB Cardiovascular: RRR Gastrointestinal: soft Extremities: no cyanosis Skin: normal turgor Neurological: no focal deficits PSYCH: not oriented, somnolent Results - Labs Result Diagrams: 04/20/20 04:00 04/20/20 04:00 Lab results: WBC 17.8 thou/uL (4.8-10.8) H 04/20/20 04:00 Hgb 13.9 g/dL (14.0-18.0) L 04/20/20 04:00 Hct 45.5 % (42.0-52.0) 04/20/20 04:00 MCV 93.2 fL (78.0-98.0) 04/20/20 04:00 Plt Count 193 thou/uL (130-400) 04/20/20 04:00 Neutrophils % 91.1 % (42.0-75.0) H 04/20/20 04:00 ABG pH 7.26 (7.35-7.45) L 04/20/20 07:40 ABG pCO2 59.0 mmHg (35.0-45.0) H 04/20/20 07:40 ABG pO2 89.2 mmHg (> 80.0) H 04/20/20 07:40 Sodium 140 mmol/L (136-145) 04/20/20 04:00 Potassium 4.9 mmol/L (3.5-5.1) 04/20/20 04:00 Chloride 107 mmol/L (98-107) 04/20/20 04:00 Carbon Dioxide 26 mmol/L (23-31) 04/20/20 04:00 BUN 27 mg/dL (8.4-25.7) H 04/20/20 04:00 Creatinine 0.85 mg/dL (0.7-1.3) 04/20/20 04:00 Glucose 135 mg/dL (80-115) H 04/20/20 04:00 Lactic Acid 0.9 mmol/L (0.5-2.2) 04/18/20 22:29 Calcium 8.1 mg/dL (7.8-10.44) 04/20/20 04:00 Total Bilirubin 0.6 mg/dL (0.2-1.2) 04/20/20 04:00 AST 15 U/L (5-34) 04/20/20 04:00 ALT 25 U/L (8-55) 04/20/20 04:00 Alkaline Phosphatase 57 U/L (40-110) 04/20/20 04:00 Creatine Kinase 95 U/L (30-200) 04/18/20 22:29 Troponin I 0.018 ng/mL (< 0.028) 04/18/20 22:29 B-Natriuretic Peptide 13.9 pg/mL (0-100) 04/18/20 22:29 Serum Total Protein 6.5 g/dL (5.8-8.1) 04/20/20 04:00 Albumin 3.8 g/dL (3.4-4.8) 04/20/20 04:00 Lipase 6 U/L (8-78) L 04/18/20 22:29 Urine Ketones Negative mg/dL (Negative) 04/18/20 23:00 Urine Blood Negative (Negative) 04/18/20 23:00 Urine Nitrite Negative (Negative) 04/18/20 23:00 Ur Leukocyte Esterase Negative Kian/uL (Negative) 04/18/20 23:00 Urine RBC 4-6 HPF (0-3) A 04/18/20 23:00 Urine WBC 4-6 HPF (0-3) A 04/18/20 23:00 Ur Squamous Epith Cells None Seen HPF (0-3) 04/18/20 23:00 Urine Bacteria None Seen HPF (None Seen) 04/18/20 23:00 - Radiology Interpretation CT scan - head Status: image reviewed by me, report reviewed by me Additional Comment: no acute intracranial pathology. PN A/P (1) Altered mental status Code(s): R41.82 - ALTERED MENTAL STATUS, UNSPECIFIED Status: Acute (2) Acute respiratory failure with hypoxia and hypercapnia Code(s): J96.01 - ACUTE RESPIRATORY FAILURE WITH HYPOXIA; J96.02 - ACUTE RESPIRATORY FAILURE WITH HYPERCAPNIA Status: Acute (3) Seizure disorder Code(s): G40.909 - EPILEPSY, UNSP, NOT INTRACTABLE, WITHOUT STATUS EPILEPTICUS Status: Acute (4) COPD (chronic obstructive pulmonary disease) Status: Chronic (5) Traumatic brain injury Code(s): S06.9X9A - UNSP INTRACRANIAL INJURY W LOC OF UNSP DURATION, INIT Status: Chronic - Plan Daily Plan: PT/OT, respiratory therapy, DVT proph w/SCDs 64 year old male consulted for altered mental status. Patient intubated because of COPD exacerbation. No seizures since admission. Continue Keppra 1000 mg IV q12. Observe seizure precautions. Ativan 2 mg IV for seizures greater than 2 minutes. EEG reviewed and was negative for seizure activity. Head CT reviewed and was negative for acute intracranial process. Neurochecks every 4 hours, Continue home medications. Continue medical management per primary team and pulmonology..
[2020-04-21] MEDS: methylPREDNISolone Sod Succ 40 MG VIAL IVP SCH ×2 (00:07→05:25)
[2020-04-21] MEDS: Propofol 1,000 MG/100 ML VIAL IV PRN ×3 (03:36→16:35)
[2020-04-21 04:22] LABS: #Lymphocytes 0.7 thou/uL (1.20-3.40); #Monocytes 0.6 thou/uL (0.11-0.59); #Neutrophils 11.4 thou/uL (1.40-6.50); %Basophils 0.1 % (0.0-1.0); %Eosinophils 0.1 % (0.0-10.0); %Lymphocytes 5.2 % (21.0-51.0); %Monocytes 4.8 % (0.0-10.0); %Neutrophils 89.8 % (42.0-75.0); Hemoglobin 12.3 g/dL (14.0-18.0); Mean Corpuscular HGB CONC 31.4 g/dL (32.0-36.0); Mean Corpuscular Hemoglobin 28.9 pg (27.0-31.0); Mean Platelet Volume 8.3 fL (7.4-10.4); Platelet Count 158 thou/uL (130-400); RBC Distribution Width 13.9 % (11.5-14.5); Red Blood Cell (RBC) Count 4.26 mill/uL (4.70-6.10); White Blood Cell (WBC) Count 12.7 thou/uL (4.8-10.8)
[2020-04-21 04:41] LABS: ALT (SGPT) 17 U/L (8-55); AST (SGOT) 9 U/L (5-34); Albumin 3.5 g/dL (3.4-4.8); Alkaline Phosphatase 46 U/L (40-110); Anion Gap 12 mmol/L (10-20); BUN (Urea Nitrogen) 25 mg/dL (8.4-25.7); Bilirubin, Total 0.4 mg/dL (0.2-1.2); Calc. Creatinine Clearance 139 mL/min (70-130); Calcium 7.9 mg/dL (7.8-10.44); Carbon Dioxide 27 mmol/L (23-31); Chloride 105 mmol/L (98-107); Estimated GFR-MDRD Greater than 90; Globulin 2.3 g/dL (2.4-3.5); Glucose 124 mg/dL (80-115); Protein, Total 5.8 g/dL (5.8-8.1); Sodium 139 mmol/L (136-145)
[2020-04-21] MEDS: Sodium Chloride 0.9% 1,000 ML IV SCH ×2 (05:25→14:29)
[2020-04-21 07:09] LABS: Actual Bicarbonate (HCO3a) 30.2 mEq/L (22-28); Base Excess (BEa) 2.1 mEq/L (-2.0 to +3.0); Calcium, Ionized (arterial) 1.18 mmol/L (1.12-1.30); Carboxyhemoglobin (COHb) 0.5 gm% (0.0-3.0); Hemoglobin (Hb) 13.2 g/dL (14.0-18.0); O2 Tension (PaO2), arterial 100.7 mmHg (> 80.0); Potassium - ABG Lab 4.97 mmol/L (3.70-5.30)
[2020-04-21 07:10] LABS: CO2 Tension 63.5 mmHg (35.0-45.0); Puncture Site RRA
[2020-04-21 07:11] LABS: ALV-art Gradient 105.125 mmHg (0-20)
--- NOTE | 2020-04-21 08:09 | RAD ---
XR Chest 1 View Portable History: Pneumonia Comparison: Radiograph April 19, 2020 Findings: Right IJ central venous catheter tip in good position. Endotracheal tube tip 3.5 cm above t he tangela. Enteric tube tip in the gastric body. Small left pleural effusion. Peripheral right midlung scar is similar. Left perihilar mass. Mild incr ease of left basilar opacity. Impression: 1. Increased left basilar opacity may reflect postobstructive pneumonitis/developing pneumonia. 2. Left perihilar mass concerning for malignancy.
[2020-04-21] MEDS: levETIRAcetam In NaCl (Iso-Os) 1,000 MG in Premix Bag 1 BAG IVPB SCH ×2 (08:25→21:00)
[2020-04-21] MEDS: Famotidine/PF 20 mg/2ml Vial SLOW IVP SCH ×2 (08:29→21:00)
[2020-04-21] MEDS: Enoxaparin Sodium 40 MG/0.4 ML SYRINGE SC SCH (08:29)
--- NOTE | 2020-04-21 08:39 | PDOC.HOSPP ---
- Subjective Encounter Date: 04/21/20 Encounter Time: 08:38 Subjective: Mr. Santiago was seen today in follow-up of respiratory failure. He is currently intubated. He is awake. He is trying to tell me smothing. He is asking for a pen to write. - Objective Vital Signs & Weight: Vital Signs (12 hours) Temp Pulse Resp Pulse Ox 04/21/20 08:00 98.6 F 25 H 100 04/21/20 06:58 77 04/21/20 06:00 10 L 04/21/20 04:00 99.0 F 10 L 04/21/20 02:41 80 04/21/20 02:39 78 10 L 100 04/21/20 02:00 10 L 04/21/20 00:00 98.6 F 10 L 04/20/20 23:01 71 16 100 04/20/20 22:49 70 04/20/20 22:00 15 Weight Admit Weight 212 lb Weight 212 lb 1.355 oz Most Recent Monitor Data Heart Rate from ECG 87 NIBP 136/82 NIBP BP-Mean 100 Respiration from ECG 12 SpO2 100 I&O: 04/20/20 04/21/20 04/22/20 06:59 06:59 06:59 Intake Total 2495.9 2890 Output Total 995 1225 85 Balance 1500.9 1665 -85 Result Diagrams: 04/21/20 03:45 04/21/20 03:45 Hospitalist ROS - Medication Medications: Active Medications Generic Name Dose Route Start Last Admin Trade Name Freq PRN Reason Stop Dose Admin Enoxaparin Sodium 40 mg 04/19/20 09:00 04/21/20 08:29 Enoxaparin Sodium 40 Mg/0.4 Ml Syringe SC 40 mg 0900 COLLEEN Administration Famotidine 20 mg 04/19/20 09:00 04/21/20 08:29 Famotidine/Pf 20 Mg/2ml Vial SLOW IVP 20 mg Q12HR COLLEEN Administration Fentanyl Citrate 2,000 mcg/ 100 mls @ 0 mls/hr 04/18/20 23:45 04/20/20 10:04 Sodium Chloride IV 05/18/20 23:45 100 mls INF COLLEEN Administration Protocol Per Protocol Sodium Chloride 1,000 mls @ 100 mls/hr 04/19/20 02:00 04/21/20 05:25 Normal Saline 0.9% IV 1,000 mls .Q10H COLLEEN Administration Levofloxacin 500 mg/ Device 100 mls @ 100 mls/hr 04/19/20 04:00 04/21/20 03:36 IVPB 100 mls 0400 COLLEEN Administration Levetiracetam 1,000 mg/ Device 100 mls @ 200 mls/hr 04/19/20 21:00 04/21/20 08:25 IVPB 100 mls BID COLLEEN Administration Lorazepam 2 mg 04/19/20 01:46 04/20/20 08:53 Lorazepam 2 Mg/Ml Vial SLOW IVP 2 mg Q15M PRN Administration Seizures Lorazepam 2 mg 04/19/20 02:00 04/20/20 20:19 Lorazepam 2 Mg/Ml Vial SLOW IVP 05/19/20 02:00 2 mg Q1H PRN Administration Breakthrough agitation Methylprednisolone Sodium Succinate 40 mg 04/19/20 06:00 04/21/20 05:25 Methylprednisolone Sod Succ 40 Mg Vial IVP 40 mg Q6HR COLLEEN Administration Propofol 1,000 mg 04/19/20 02:00 04/21/20 03:36 Propofol 1,000 Mg/100 Ml Vial IV 05/19/20 02:00 1,000 mg INF PRN Administration TO ACHIEVE GOAL RASS Protocol Sodium Chloride 10 ml 04/21/20 09:00 04/21/20 08:30 Flush - Normal Saline 10 Ml Syringe IVF 10 ml Q12HR COLLEEN Administration - Exam Eye: PERRL, anicteric sclera Heart: RRR, no murmur, no gallops, no rubs, normal peripheral pulses Respiratory: rhonchi Gastrointestinal: soft, non-tender, non-distended, normal bowel sounds, no palp able masses, no hepatomegaly Extremities: no cyanosis, 1+ LE edema Hosp A/P (1) Acute respiratory failure with hypoxia and hypercapnia Code(s): J96.01 - ACUTE RESPIRATORY FAILURE WITH HYPOXIA; J96.02 - ACUTE RESPIRATORY FAILURE WITH HYPERCAPNIA Status: Acute (2) Altered mental status Code(s): R41.82 - ALTERED MENTAL STATUS, UNSPECIFIED Status: Acute (3) Seizure disorder Code(s): G40.909 - EPILEPSY, UNSP, NOT INTRACTABLE, WITHOUT STATUS EPILEPTICUS Status: Acute (4) COPD (chronic obstructive pulmonary disease) Status: Chronic (5) Traumatic brain injury Code(s): S06.9X9A - UNSP INTRACRANIAL INJURY W LOC OF UNSP DURATION, INIT Status: Chronic - Plan * Acute respiratory failure- due to COPD exacerbation * COPD- continue IV steroids and Duonebs, and Levoquin * He had been placed back on CPAP * If he is not extubated today, then will need to start tube feeds * DVT and GI prophylaxis * Seizure disorder- continue Keppra IV
--- NOTE | 2020-04-21 09:19 | PRG ---
DATE OF SERVICE: 04/21/2020 35 minutes critical care time. SUBJECTIVE: The patient remains intubated on mechanical ventilation. He will wake up, follow commands. OBJECTIVE: VITAL SIGNS: Temperature 98.6, pulse 87, blood pressure 136/82, O2 saturation 100%. Intake , output 1225. HEENT: Unremarkable except for rhinophyma. NECK: No adenopathy or JVD. LUNGS: Bilateral expiratory wheezing, much worse on the left than right. CARDIAC: S1, S2, regular. ABDOMEN: Soft and nontender. EXTREMITIES: No edema. LABORATORY DATA: White blood cell count 12.7, hematocrit 39, and platelet count 158. PH 7.3, pCO2 of 63, PO2 of 100 on SIMV rate of 10, tidal volume 500, PEEP of 5, pressure of 10, FiO2 of 40%. Sodium 139, potassium 5, chloride 105, CO2 of 27, BUN 25, creatinine 0.7, glucose 124. Chest x-ray showed no change. ASSESSMENT: 1. Chronic obstructive pulmonary disease with exacerbation. 2. Acute respiratory failure requiring mechanical ventilation. PLAN: He is not ready to wean yet because he is still very tight. I will increase his steroids, nebulization treatments, and add Singular. He will remain sedated. We will start tube feeds. Job ID: [id number]
[2020-04-21] MEDS: Lorazepam 2 MG/ML VIAL SLOW IVP PRN ×2 (10:29→14:15)
[2020-04-21] MEDS: methylPREDNISolone Sod Succ/PF 125 MG/2 ML VIAL IVP SCH ×2 (11:08→17:15)
[2020-04-21] MEDS: Montelukast Sodium 10 mg Tablet PO SCH (21:02)
[2020-04-22] MEDS: methylPREDNISolone Sod Succ/PF 125 MG/2 ML VIAL IVP SCH ×4 (00:55→18:18)
[2020-04-22] MEDS: Sodium Chloride 0.9% 1,000 ML IV SCH (01:09)
[2020-04-22] MEDS: Propofol 1,000 MG/100 ML VIAL IV PRN ×4 (03:26→20:54)
[2020-04-22] MEDS: fentaNYL Citrate/PF 2,000 MCG in Sodium Chloride 0.9% 60 ML IV SCH ×2 (03:27→22:23)
[2020-04-22 07:13] LABS: Actual Bicarbonate (HCO3a) 31.1 mEq/L (22-28); Base Excess (BEa) 5.4 mEq/L (-2.0 to +3.0); CO2 Tension 49.9 mmHg (35.0-45.0); Calcium, Ionized (arterial) 1.15 mmol/L (1.12-1.30); Carboxyhemoglobin (COHb) 0.2 gm% (0.0-3.0); Hemoglobin (Hb) 12.9 g/dL (14.0-18.0); O2 Tension (PaO2), arterial 131.3 mmHg (> 80.0); Potassium - ABG Lab 4.19 mmol/L (3.70-5.30); pH, Arterial 7.41 (7.35-7.45)
[2020-04-22 07:14] LABS: ALV-art Gradient 91.525 mmHg (0-20); Puncture Site RRA
--- NOTE | 2020-04-22 07:47 | PRG ---
DATE OF SERVICE: 04/22/2020 35 minutes critical care time. SUBJECTIVE: The patient remains intubated on mechanical ventilation. There has been no acute changes overnight. OBJECTIVE: VITAL SIGNS: Temperature is 98.6, pulse 72, blood pressure 125/63. 24-hour intake 1810, output 910. Currently on propofol and fentanyl. HEENT: Unremarkable. NECK: No adenopathy or JVD. LUNGS: He has diffuse bilateral wheezing with long exfoliation time. ABDOMEN: Soft and nontender. EXTREMITIES: No clubbing, cyanosis, or edema. LABORATORY DATA: ABGs; pH 7.41, pCO2 of 49, PO2 of 131, on SIMV rate 18, tidal of 500, PEEP 5, pressure support 10, FiO2 at 40%. No other labs were drawn today. X-ray shows no acute change. ASSESSMENT: 1. Chronic obstructive pulmonary disease with exacerbation. 2. Acute hypoxic respiratory failure requiring mechanical ventilation. PLAN: I have adjusted his ventilator settings to prolong his exhalation time. He will continue steroids, embolization treatments, Singulair, and antibiotics. He needs to remain intubated until his exhalation time has corrected. Job ID: [id number]
--- NOTE | 2020-04-22 07:55 | RAD ---
Chest AP view INDICATION: Pneumonia COMPARISON: April 21, 2020 FINDINGS: Lungs: Airspace disease within the right midlung and left lower lobe are stable Cardiac silhouette: Mild cardiomegaly is stable Pulmonary vasculature: Normal Pleural spaces: Tiny bilateral pleural effusions persist. Left costophrenic angle is excluded. Upper abdomen: No abnormality seen. Osseous structures: No acute osseous abnormality. Additional findings: ET tube, gastric catheter and right IJ central venous catheter are unchanged. IMPRESSION: Stable bilateral airspace disease. Stable tubes and lines. No definite pneumothorax. Persistent tiny bilateral pleural effusions suspected.
[2020-04-22] MEDS: levETIRAcetam In NaCl (Iso-Os) 1,000 MG in Premix Bag 1 BAG IVPB SCH ×2 (08:12→20:57)
[2020-04-22] MEDS: Enoxaparin Sodium 40 MG/0.4 ML SYRINGE SC SCH (08:13)
[2020-04-22] MEDS: Famotidine/PF 20 mg/2ml Vial SLOW IVP SCH ×2 (08:13→20:56)
--- NOTE | 2020-04-22 08:26 | PDOC.HOSPP ---
- Subjective Encounter Date: 04/22/20 Encounter Time: 08:25 Subjective: Mr. Santiago was seen today in follow-up. He remains intubated. He is a bit calmer today than yesterday. - Objective Vital Signs & Weight: Vital Signs (12 hours) Temp Pulse Resp Pulse Ox 04/22/20 07:10 67 04/22/20 06:00 18 04/22/20 04:00 98.6 F 18 04/22/20 02:14 63 18 100 04/22/20 02:00 18 04/22/20 00:11 58 L 18 100 04/22/20 00:00 98.6 F 18 04/21/20 22:00 18 04/21/20 21:30 78 18 100 Weight Admit Weight 212 lb Weight 212 lb 1.355 oz Most Recent Monitor Data Heart Rate from ECG 72 NIBP 125/63 NIBP BP-Mean 83 Respiration from ECG 18 SpO2 100 I&O: 04/21/20 04/22/20 04/23/20 06:59 06:59 06:59 Intake Total 2890 3547 Output Total 1225 1215 Balance 1665 2332 Result Diagrams: 04/21/20 03:45 04/21/20 03:45 Hospitalist ROS - Medication Medications: Active Medications Generic Name Dose Route Start Last Admin Trade Name Freq PRN Reason Stop Dose Admin Albuterol/Ipratropium 3 ml 04/21/20 10:00 04/22/20 07:09 Ipratropium/Albuterol Sulfate 3 Ml Neb NEB 3 ml [id number] COLLEEN Administration Enoxaparin Sodium 40 mg 04/19/20 09:00 04/22/20 08:13 Enoxaparin Sodium 40 Mg/0.4 Ml Syringe SC 40 mg 0900 COLLEEN Administration Famotidine 20 mg 04/19/20 09:00 04/22/20 08:13 Famotidine/Pf 20 Mg/2ml Vial SLOW IVP 20 mg Q12HR COLLEEN Administration Fentanyl Citrate 2,000 mcg/ 100 mls @ 0 mls/hr 04/18/20 23:45 04/22/20 03:27 Sodium Chloride IV 05/18/20 23:45 100 mls INF COLLEEN Administration Protocol Per Protocol Levofloxacin 500 mg/ Device 100 mls @ 100 mls/hr 04/19/20 04:00 04/22/20 03:23 IVPB 100 mls 0400 COLLEEN Administration Levetiracetam 1,000 mg/ Device 100 mls @ 200 mls/hr 04/19/20 21:00 04/22/20 08:12 IVPB 100 mls BID COLLEEN Administration Lorazepam 2 mg 04/19/20 01:46 04/21/20 14:15 Lorazepam 2 Mg/Ml Vial SLOW IVP 2 mg Q15M PRN Administration Seizures Lorazepam 2 mg 04/19/20 02:00 04/20/20 20:19 Lorazepam 2 Mg/Ml Vial SLOW IVP 05/19/20 02:00 2 mg Q1H PRN Administration Breakthrough agitation Methylprednisolone Sodium Succinate 60 mg 04/21/20 12:00 04/22/20 06:36 Methylprednisolone Sod Succ/Pf 125 Mg/2 Ml Vial IVP 60 mg Q6HR COLLEEN Administration Montelukast Sodium 10 mg 04/21/20 21:00 04/21/20 21:02 Montelukast Sodium 10 Mg Tablet PO 10 mg QPM COLLEEN Administration Propofol 1,000 mg 04/19/20 02:00 04/22/20 07:40 Propofol 1,000 Mg/100 Ml Vial IV 05/19/20 02:00 1,000 mg INF PRN Administration TO ACHIEVE GOAL RASS Protocol Sodium Chloride 10 ml 04/21/20 09:00 04/22/20 08:14 Flush - Normal Saline 10 Ml Syringe IVF 10 ml Q12HR COLLEEN Administration - Exam General - other findings: + erythema on the face Eye: PERRL, anicteric sclera Heart: RRR, no murmur, no gallops, no rubs, normal peripheral pulses Respiratory: rhonchi, wheezes (+ bilateral wheezing, with long expiratory phase, but improved from yesterday) Gastrointestinal: soft, non-tender, non-distended, normal bowel sounds, no palpable masses, no hepatomegaly Extremities: no cyanosis, no edema Hosp A/P (1) Acute respiratory failure with hypoxia and hypercapnia Code(s): J96.01 - ACUTE RESPIRATORY FAILURE WITH HYPOXIA; J96.02 - ACUTE RESPIRATORY FAILURE WITH HYPERCAPNIA Status: Acute (2) Altered mental status Code(s): R41.82 - ALTERED MENTAL STATUS, UNSPECIFIED Status: Acute (3) Seizure disorder Code(s): G40.909 - EPILEPSY, UNSP, NOT INTRACTABLE, WITHOUT STATUS EPILEPTICUS Status: Acute (4) COPD (chronic obstructive pulmonary disease) Status: Chronic (5) Traumatic brain injury Code(s): S06.9X9A - UNSP INTRACRANIAL INJURY W LOC OF UNSP DURATION, INIT Status: Chronic - Plan * Acute respiratory failure- due to COPD exacerbation * COPD- continue IV steroids and Duonebs, and Levoquin * Continue Vent wean as per PCCM * Continue Tube feeds for nutritional support * Seizure disorder- continue Keppra IV
[2020-04-22 09:33] LABS: #Lymphocytes 0.4 thou/uL (1.20-3.40); #Monocytes 0.6 thou/uL (0.11-0.59); #Neutrophils 6.6 thou/uL (1.40-6.50); %Eosinophils 0.4 % (0.0-10.0); %Lymphocytes 4.6 % (21.0-51.0); %Monocytes 7.9 % (0.0-10.0); Hemoglobin 12.4 g/dL (14.0-18.0); Mean Corpuscular Hemoglobin 28.7 pg (27.0-31.0); Mean Corpuscular Volume 92.7 fL (78.0-98.0); Mean Platelet Volume 7.9 fL (7.4-10.4); Platelet Count 176 thou/uL (130-400); Red Blood Cell (RBC) Count 4.32 mill/uL (4.70-6.10); White Blood Cell (WBC) Count 7.5 thou/uL (4.8-10.8)
[2020-04-22 09:55] LABS: Anion Gap 11 mmol/L (10-20); BUN (Urea Nitrogen) 21 mg/dL (8.4-25.7); Calc. Creatinine Clearance 161 mL/min (70-130); Calcium 7.9 mg/dL (7.8-10.44); Carbon Dioxide 28 mmol/L (23-31); Chloride 106 mmol/L (98-107); Estimated GFR-MDRD Greater than 90; Glucose 135 mg/dL (80-115); Potassium 4.3 mmol/L (3.5-5.1); Sodium 141 mmol/L (136-145)
[2020-04-22] MEDS: Montelukast Sodium 10 mg Tablet PO SCH (20:57)
[2020-04-23] MEDS: methylPREDNISolone Sod Succ/PF 125 MG/2 ML VIAL IVP SCH ×4 (00:03→17:54)
[2020-04-23] MEDS: Propofol 1,000 MG/100 ML VIAL IV PRN (02:09)
[2020-04-23 04:29] LABS: #Lymphocytes 0.5 thou/uL (1.20-3.40); #Monocytes 0.6 thou/uL (0.11-0.59); #Neutrophils 9.2 thou/uL (1.40-6.50); %Eosinophils 0.2 % (0.0-10.0); %Lymphocytes 4.8 % (21.0-51.0); %Monocytes 6.1 % (0.0-10.0); %Neutrophils 88.9 % (42.0-75.0); Mean Corpuscular Hemoglobin 29.3 pg (27.0-31.0); Mean Corpuscular Volume 91.6 fL (78.0-98.0); Mean Platelet Volume 8.6 fL (7.4-10.4); Platelet Count 190 thou/uL (130-400); RBC Distribution Width 14.1 % (11.5-14.5); Red Blood Cell (RBC) Count 4.77 mill/uL (4.70-6.10); White Blood Cell (WBC) Count 10.4 thou/uL (4.8-10.8)
[2020-04-23 04:58] LABS: Anion Gap 11 mmol/L (10-20); BUN (Urea Nitrogen) 24 mg/dL (8.4-25.7); Calc. Creatinine Clearance 143 mL/min (70-130); Calcium 8.3 mg/dL (7.8-10.44); Carbon Dioxide 31 mmol/L (23-31); Chloride 104 mmol/L (98-107); Estimated GFR-MDRD Greater than 90; Glucose 147 mg/dL (80-115); Potassium 4.6 mmol/L (3.5-5.1); Sodium 141 mmol/L (136-145)
[2020-04-23 06:44] LABS: Actual Bicarbonate (HCO3a) 30.7 mEq/L (22-28); Base Excess (BEa) 3.7 mEq/L (-2.0 to +3.0); CO2 Tension 56.3 mmHg (35.0-45.0); Calcium, Ionized (arterial) 1.19 mmol/L (1.12-1.30); Carboxyhemoglobin (COHb) 0.3 gm% (0.0-3.0); O2 Tension (PaO2), arterial 122.6 mmHg (> 80.0); Potassium - ABG Lab 4.43 mmol/L (3.70-5.30); pH, Arterial 7.35 (7.35-7.45)
[2020-04-23 07:11] LABS: ALV-art Gradient 92.225 mmHg (0-20); Puncture Site RRAD
--- NOTE | 2020-04-23 08:18 | RAD ---
EXAM: CHEST ONE VIEW HISTORY: Pneumonia. Follow-up evaluation. COMPARISON: 04/22/2020 FINDINGS: Endotracheal tube, nasogastric tube, and right-sided vascular catheter remain in place and unchanged in position. Cardiac silhouette is within normal limits for portable technique. Pulmonary vasculature is at the upper limits of normal. There is mild increase in airspace opacity at the media l right lung base which is increased from the prior exam. Persistent linear opacities in the right midlung zone are again seen. No other interval change IMPRESSION: Development of mild patchy airspace opacity right lung base with persistent interstitial densities ri ght midlung zone. Findings at the medial right lung base may be related to developing pneumonitis with the linear densities right midlung zone likely related to mild scarring.
--- NOTE | 2020-04-23 09:05 | PRG ---
DATE OF SERVICE: 04/23/2020 TIME SPENT: 35 minutes of critical care time. SUBJECTIVE: The patient remains intubated, on mechanical ventilation. He is awake, somewhat anxious, combative. OBJECTIVE: VITAL SIGNS: Temperature 98.7, pulse 79, blood pressure 120/73, O2 saturation 100%. 24-hour intake 2313, output 1375. HEENT: Unremarkable. NECK: No JVD. LUNGS: Less wheezing than yesterday. CARDIAC: S1 and S2. Regular. ABDOMEN: Soft and nontender. EXTREMITIES: No clubbing, cyanosis, or edema. LABORATORY DATA: White blood cell count 10.4, hematocrit 43.7, and platelet count 190. PH of 7.35, pCO2 of 56, pO2 of 122, on SIMV rate of 14, tidal volume 450, PEEP 5, pressure support 10, FiO2 of 40%. Sodium 141, potassium 4.6, chloride 104, CO2 of 31, BUN 24, creatinine 0.7, glucose 147. ASSESSMENT: 1. Acute respiratory failure requiring mechanical ventilation. 2. Chronic obstructive pulmonary disease with exacerbation. PLAN: Spontaneous breathing trial, extubate if tolerates. Continue steroids, nebulization treatments, Singulair. Job ID: [id number]
[2020-04-23] MEDS ORDERED: DC Sedation Protocol FS ONE (09:06)
[2020-04-23] MEDS: Famotidine/PF 20 mg/2ml Vial SLOW IVP SCH ×2 (09:14→20:21)
[2020-04-23] MEDS: Enoxaparin Sodium 40 MG/0.4 ML SYRINGE SC SCH (09:14)
[2020-04-23] MEDS: levETIRAcetam In NaCl (Iso-Os) 1,000 MG in Premix Bag 1 BAG IVPB SCH ×2 (09:14→20:21)
--- NOTE | 2020-04-23 09:33 | PDOC.HOSPP ---
- Subjective Encounter Date: 04/23/20 Encounter Time: 09:32 Subjective: Mr. Santiago was seen today in follow-up of respiratory failure. He is awake and alert. No new complaints. - Objective Vital Signs & Weight: Vital Signs (12 hours) Temp Pulse Resp Pulse Ox 04/23/20 08:00 98.6 F 18 04/23/20 07:09 80 19 100 04/23/20 06:00 19 04/23/20 04:00 98.7 F 16 04/23/20 02:18 85 19 100 04/23/20 02:00 23 H 04/23/20 00:10 73 14 100 04/23/20 00:00 98.6 F 14 04/22/20 22:00 19 04/22/20 21:37 85 19 100 Weight Admit Weight 212 lb Weight 212 lb 1.355 oz Most Recent Monitor Data Heart Rate from ECG 89 NIBP 127/90 NIBP BP-Mean 102 Respiration from ECG 23 SpO2 100 I&O: 04/22/20 04/23/20 04/24/20 06:59 06:59 06:59 Intake Total 3561 2313 0 Output Total 1215 1375 190 Balance 2346 938 -190 Result Diagrams: 04/23/20 04:00 04/23/20 04:00 Hospitalist ROS - Medication Medications: Active Medications Generic Name Dose Route Start Last Admin Trade Name Freq PRN Reason Stop Dose Admin Albuterol/Ipratropium 3 ml 04/21/20 10:00 04/23/20 07:09 Ipratropium/Albuterol Sulfate 3 Ml Neb NEB 3 ml [id number] COLLEEN Administration Enoxaparin Sodium 40 mg 04/19/20 09:00 04/23/20 09:14 Enoxaparin Sodium 40 Mg/0.4 Ml Syringe SC 40 mg 0900 COLLEEN Administration Famotidine 20 mg 04/19/20 09:00 04/23/20 09:14 Famotidine/Pf 20 Mg/2ml Vial SLOW IVP 20 mg Q12HR COLLEEN Administration Levofloxacin 500 mg/ Device 100 mls @ 100 mls/hr 04/19/20 04:00 04/23/20 03:02 IVPB 100 mls 0400 COLLEEN Administration Levetiracetam 1,000 mg/ Device 100 mls @ 200 mls/hr 04/19/20 21:00 04/23/20 09:14 IVPB 100 mls BID COLLEEN Administration Lorazepam 2 mg 04/19/20 01:46 04/21/20 14:15 Lorazepam 2 Mg/Ml Vial SLOW IVP 2 mg Q15M PRN Administration Seizures Methylprednisolone Sodium Succinate 60 mg 04/21/20 12:00 04/23/20 06:06 Methylprednisolone Sod Succ/Pf 125 Mg/2 Ml Vial IVP 60 mg Q6HR COLLEEN Administration Montelukast Sodium 10 mg 04/21/20 21:00 04/22/20 20:57 Montelukast Sodium 10 Mg Tablet PO 10 mg QPM COLLEEN Administration Sodium Chloride 10 ml 04/21/20 09:00 04/23/20 09:15 Flush - Normal Saline 10 Ml Syringe IVF 10 ml Q12HR COLLEEN Administration - Exam Eye: PERRL, anicteric sclera Heart: RRR, no murmur, no gallops, no rubs, normal peripheral pulses Respiratory: no ronchi, wheezes (+ mild expiratory wheeze) Gastrointestinal: soft, non-tender, non-distended, normal bowel sounds, no palpable masses, no hepatomegaly Extremities: no cyanosis Hosp A/P (1) Acute respiratory failure with hypoxia and hypercapnia Code(s): J96.01 - ACUTE RESPIRATORY FAILURE WITH HYPOXIA; J96.02 - ACUTE RESPIRATORY FAILURE WITH HYPERCAPNIA Status: Acute (2) Altered mental status Code(s): R41.82 - ALTERED MENTAL STATUS, UNSPECIFIED Status: Acute (3) Seizure disorder Code(s): G40.909 - EPILEPSY, UNSP, NOT INTRACTABLE, WITHOUT STATUS EPILEPTICUS Status: Acute (4) COPD (chronic obstructive pulmonary disease) Status: Chronic (5) Traumatic brain injury Code(s): S06.9X9A - UNSP INTRACRANIAL INJURY W LOC OF UNSP DURATION, INIT Status: Chronic - Plan * Acute respiratory failure- due to COPD exacerbation * COPD- continue IV steroids and Duonebs, and Levoquin * Plan is to wean from the ventilator today * Continue other supportive care
[2020-04-23 11:52] VITALS: BP 135/113
[2020-04-23] MEDS: Montelukast Sodium 10 mg Tablet PO SCH (20:21)
[2020-04-24] MEDS: methylPREDNISolone Sod Succ/PF 125 MG/2 ML VIAL IVP SCH ×2 (00:04→05:11)
[2020-04-24 04:46] LABS: #Lymphocytes 0.4 thou/uL (1.20-3.40); #Monocytes 0.5 thou/uL (0.11-0.59); #Neutrophils 8.6 thou/uL (1.40-6.50); %Basophils 0.3 % (0.0-1.0); %Eosinophils 0.4 % (0.0-10.0); %Lymphocytes 4.4 % (21.0-51.0); %Monocytes 5.7 % (0.0-10.0); %Neutrophils 89.2 % (42.0-75.0); Mean Corpuscular HGB CONC 32.5 g/dL (32.0-36.0); Mean Corpuscular Hemoglobin 30.1 pg (27.0-31.0); Mean Corpuscular Volume 92.6 fL (78.0-98.0); Mean Platelet Volume 8.6 fL (7.4-10.4); Platelet Count 174 thou/uL (130-400); Red Blood Cell (RBC) Count 4.66 mill/uL (4.70-6.10); White Blood Cell (WBC) Count 9.6 thou/uL (4.8-10.8)
[2020-04-24 05:12] LABS: Anion Gap 10 mmol/L (10-20); BUN (Urea Nitrogen) 29 mg/dL (8.4-25.7); Calc. Creatinine Clearance 137 mL/min (70-130); Calcium 8.2 mg/dL (7.8-10.44); Carbon Dioxide 34 mmol/L (23-31); Chloride 101 mmol/L (98-107); Estimated GFR-MDRD Greater than 90; Glucose 133 mg/dL (80-115); Potassium 4.4 mmol/L (3.5-5.1); Sodium 141 mmol/L (136-145)
[2020-04-24] MEDS: levETIRAcetam In NaCl (Iso-Os) 1,000 MG in Premix Bag 1 BAG IVPB SCH (08:39)
[2020-04-24] MEDS: Famotidine/PF 20 mg/2ml Vial SLOW IVP SCH (08:40)
[2020-04-24] MEDS: Enoxaparin Sodium 40 MG/0.4 ML SYRINGE SC SCH ×2 (08:40→08:43)
--- NOTE | 2020-04-24 09:44 | PRG ---
DATE OF SERVICE: 04/24/2020 SUBJECTIVE: The patient is doing well post extubation yesterday. He is clamoring to be discharged back to his [facility] center so that he can smoke. OBJECTIVE: VITAL SIGNS: His temperature is 99.1, pulse 95, blood pressure 120/93, saturation 95%. HEENT: Unremarkable. NECK: No adenopathy or JVD. CHEST: Clear to auscultation. CARDIAC: S1, S2. Regular. ABDOMEN: Soft. EXTREMITIES: Trace edema. IMAGING: Chest x-ray is clear. LABORATORY DATA: White blood cell count 9.6, hematocrit 43, and platelet count 174. Sodium 141, potassium 4.4, chloride 101, CO2 of 34, BUN 29, creatinine 0.7, and glucose 133. ASSESSMENT: 1. Status post respiratory failure requiring mechanical ventilation. 2. Chronic obstructive pulmonary disease with exacerbation. PLAN: Patient could be transferred out of the ICU and even perhaps back to the [facility]. I will change his nebs to every 4 hours. Steroids will be changed to oral therapy. Job ID: [id number]
--- NOTE | 2020-04-24 10:28 | PDOC.HOSPP ---
- Subjective Encounter Date: 04/24/20 Encounter Time: 10:26 Subjective: Mr. Santiago was seen today in follow-up. He says he wants to go home. He also says he wants to be Do not intubate.. - Objective Vital Signs & Weight: Vital Signs (12 hours) Temp Pulse Resp Pulse Ox 04/24/20 08:00 95 04/24/20 07:30 81 33 H 96 04/24/20 07:00 99.1 F 04/24/20 04:00 98.6 F 04/24/20 02:24 91 24 H 94 L 04/24/20 00:08 93 20 98 04/24/20 00:00 98.7 F Weight Admit Weight 212 lb Weight 212 lb 1.355 oz Most Recent Monitor Data Heart Rate from ECG 76 NIBP 127/92 NIBP BP-Mean 103 Respiration from ECG 14 SpO2 98 I&O: 04/23/20 04/24/20 04/25/20 06:59 06:59 06:59 Intake Total 2313 1163 360 Output Total 7873 1825 395 Balance 938 -659 -35 Result Diagrams: 04/24/20 03:55 04/24/20 03:55 Hospitalist ROS - Medication Medications: Active Medications Generic Name Dose Route Start Last Admin Trade Name Freq PRN Reason Stop Dose Admin Enoxaparin Sodium 40 mg 04/19/20 09:00 04/24/20 08:43 Enoxaparin Sodium 40 Mg/0.4 Ml Syringe SC Not Given 0900 COLLEEN Famotidine 20 mg 04/19/20 09:00 04/24/20 08:40 Famotidine/Pf 20 Mg/2ml Vial SLOW IVP 20 mg Q12HR COLLEEN Administration Levofloxacin 500 mg/ Device 100 mls @ 100 mls/hr 04/19/20 04:00 04/24/20 05:00 IVPB 100 mls 0400 COLLEEN Administration Levetiracetam 1,000 mg/ Device 100 mls @ 200 mls/hr 04/19/20 21:00 04/24/20 08:39 IVPB 100 mls BID COLLEEN Administration Montelukast Sodium 10 mg 04/21/20 21:00 04/23/20 20:21 Montelukast Sodium 10 Mg Tablet PO 10 mg QPM COLLEEN Administration Sodium Chloride 10 ml 04/21/20 09:00 10/03/20 08:40 Flush - Normal Saline 10 Ml Syringe IVF 10 ml Q12HR COLLEEN Administration - Exam Eye: PERRL, anicteric sclera Heart: RRR, no murmur, no gallops, no rubs, normal peripheral pulses Respiratory: CTAB, no wheezes, no rales, no ronchi, normal chest expansion Gastrointestinal: soft, non-tender, non-distended, normal bowel sounds, no palpable masses, no hepatomegaly, no splenomegaly, no bruit Extremities: no edema Hosp A/P (1) Acute respiratory failure with hypoxia and hypercapnia Code(s): J96.01 - ACUTE RESPIRATORY FAILURE WITH HYPOXIA; J96.02 - ACUTE RESPIRATORY FAILURE WITH HYPERCAPNIA Status: Acute (2) Altered mental status Code(s): R41.82 - ALTERED MENTAL STATUS, UNSPECIFIED Status: Acute (3) Seizure disorder Code(s): G40.909 - EPILEPSY, UNSP, NOT INTRACTABLE, WITHOUT STATUS EPILEPTICUS Status: Acute (4) COPD (chronic obstructive pulmonary disease) Status: Chronic (5) Traumatic brain injury Code(s): S06.9X9A - UNSP INTRACRANIAL INJURY W LOC OF UNSP DURATION, INIT Status: Chronic - Plan * Acute respiratory failure- due to COPD exacerbation * COPD- continue IV steroids and Duonebs, and Levoquin * He has been weaned from the ventilator * He says he never wants to be placed on a Ventilator again. He will be agreeable to CPR and " shocks". Will change his code status to DNI * He can be discharged home
[2020-04-24 12:25] VITALS: TEMP 98.3
--- NOTE | 2020-04-24 13:39 | RAD ---
PORTABLE CHEST: 04/24/20 HISTORY: Pneumonia. COMPARISON: Prior day's study. There is interval removal of the central line, endotracheal and NG tubes. There has been a definite i mprovement to the bibasilar parenchymal lung changes. Still some linear change in the right mid lung field consistent with some scarring. Due to the definite change since the prior examination to ensur e this is the same patient, I did consult the technologist who did state that the lines had been odette alisia since that exam. IMPRESSION: 1. Interval removal of endometrial, NG tube and central line. 2. Central complete resolution of the bibasilar parenchymal lung changes since that prior study. POS: OFF
--- NOTE | 2020-04-24 20:57 | DIS ---
DATE OF ADMISSION: 04/19/2020 DATE OF DISCHARGE: 04/24/2020 PRIMARY CARE PHYSICIAN: Laura Daugherty MD DISCHARGE DISPOSITION: Back to the nursing facility. DISCHARGE DIAGNOSES: 1. Metabolic encephalopathy. 2. Acute respiratory failure with hypoxemia. 3. Possible seizure. 4. Traumatic brain injury with a history of subdural hematoma. 5. Wheelchair bound. 6. Polyneuropathy. 7. Chronic obstructive pulmonary disease. PROCEDURES DONE DURING THE ADMISSION: The patient had an EEG showing occasional irregular theta activity with some nonsustained background. The patient had a CT scan of the brain showing no new changes. Postsurgical changes were noted on the right cerebral hemisphere. CODE STATUS: The patient wanted to change his code status to do not intubate. ALLERGIES: NO KNOWN DRUG ALLERGIES. HOSPITAL COURSE: Mr. Santiago is a pleasant 64-year-old gentleman, who resides in a nursing facility as a result of a traumatic brain injury. He is essentially wheelchair bound. He was brought to the hospital after he was found unresponsive in the nursing facility. This was after he refused admission to the hospital the previous day. It is unclear what caused the altered mental status. However, when he was brought to the hospital, there was concern for him to protect his airway. He was intubated. It was also noted that he had quite a bit of wheezing and a long expiratory phase and likely had a COPD exacerbation as well. He was maintained in the ICU on the ventilator for several days on IV steroids as well as IV antibiotics and neb treatments. He was managed by the Pulmonary/customs compliance specialist. There was concern that he may have had a seizure as a cause of the altered mental status and for this reason, Neurology was consulted. An EEG was performed and his dose of Keppra was increased from 750 mg twice a day to 1000 mg twice daily. Over the course of the next several days, he was weaned from the ventilator. Once he was weaned off the ventilator, the patient made it clear that he never wanted to be intubated again. He states that as soon as he got back to the nursing facility, he was going to fill out a do not intubate paperwork and then grabbed a Smith cigarette and smoked it. He says he is not interested in quitting smoking. He asked to be discharged back to the nursing facility. Normally we would watch the patient another day in the hospital after they had been extubated from the ventilator, but since he was clinically stable, we went ahead and discharged the patient per his wishes. He will be discharged on medications to complete his antibiotic course including the Levaquin and prednisone and he already had his medications and a higher dose of Keppra and he had his other home medications as well. Job ID: [id number]
[2020-04-25] MEDS ORDERED: predniSONE 20 MG TAB PO SCH (09:00)
--- NOTE | 2020-04-28 16:54 | EKG ---
Test Reason : Blood Pressure : / mmHG Vent. Rate : 098 BPM Atrial Rate : 098 BPM P-R Int : 136 ms QRS Dur : 076 ms QT Int : 342 ms P-R-T Axes : 073 076 069 degrees QTc Int : 436 ms Normal sinus rhythm Normal ECG Confirmed by WILLIAM MEJIA, BEREKET ([id number]), social media editor APRIL PALACIO ([id number]) on 04/28/2020 4:53:41 PM Referred By: Confirmed By:BEREKET THOMAS MD
== END 2020-04-24 14:15 | DRG 207 ==
LOC: ERS 21:29 → CCU 04-19 00:53
PROVIDERS: ADMIT Family Medicine; ATTEND Family Medicine
PROC: 5A1955Z Respiratory Ventilation, Greater than 96 Consecutive Hours (ICD-10-PCS; principal; 2020-04-19)
DX: J44.1 Chronic obstructive pulmonary disease with (acute) exacerbation (principal); J96.01 Acute respiratory failure with hypoxia; G93.41 Metabolic encephalopathy; J18.9 Pneumonia, unspecified organism; J96.02 Acute respiratory failure with hypercapnia; S06.9X9A Unspecified intracranial injury with loss of consciousness of unspecified duration, initial encounter; J44.0 Chronic obstructive pulmonary disease with (acute) lower respiratory infection; Z20.828 Contact with and (suspected) exposure to other viral communicable diseases; G40.909 Epilepsy, unspecified, not intractable, without status epilepticus; G62.9 Polyneuropathy, unspecified; E86.0 Dehydration; F17.210 Nicotine dependence, cigarettes, uncomplicated; S00.83XA Contusion of other part of head, initial encounter; X58.XXXA Exposure to other specified factors, initial encounter; Z87.820 Personal history of traumatic brain injury; Z78.1 Physical restraint status; Z79.899 Other long term (current) drug therapy; Z79.52 Long term (current) use of systemic steroids
CPT/HCPCS: 36415; 36569; 51702; 70450; 71045; 80048; 80053; 80177; 81003; 81015; 82550; 82805; 83605; 83690; 83735; 83880; 84146; 84443; 84484; 85025; 87040; 93005; 94002; 94003; 94640; 95712; 95816; 95819; 95957; 96365; 96367; 96368; 96375; 96376; J0692; J1100; J1650; J1953; J1956; J2060; J2270; J2704; J2920; J2930; J3010; J3370; J3475; J3490; J7620; S0028; U0002